=== PATIENT | female | born 1975 | race Caucasian/White ===

== ENCOUNTER 2017-01-19 20:42 | Emergency (ER) | payer OTHER ==
[~2017-01-19] VITALS: Ht 172.7 cm; Wt 97.5 kg
--- NOTE | ~2017-01-19 | CR20 ---
[facility]. [facility] A Service of [facility] & [facility] RADIOLOGY TEXT RESULTS PATIENT: ROSY SHERMAN LOCATION: SED : [birth year] UNIT #: [id number] AGE: [address]: KULDEEP TABOR SEX: F ORDER DR: [id number] [address] [address] [id number] E MR#: [id number] Acc #: [id number] NAME: ROSY SHERMAN : 1975 SEX: F STUDY DATE/TIME: 01/19/2017 22:46 UNIT: SED ROOM: STUDY DESCRIPTION: CR Ankle Min 3 Views Lt Attending Physician: Kuldeep Tabor R.N. Ordering Physician: Timo Luis M.D. Primary Care Physician: Tyree Delgado M.D. MEDICAL IMAGING REPORT This report is preliminary unless electronic signature is present. EXAM Left ankle 3 views HISTORY Slipped down hill last night; foot and ankle pain. FINDINGS 3 views of the left ankle demonstrate a mildly comminuted minimally displaced short oblique fracture of the distal fibula above the level of the ankle mortise. No more than 1-2 mm of displacement. Ankle mortise appears intact. The talus and subtalar joint are unremarkable. IMPRESSION Minimally comminuted and essentially nondisplaced short oblique fracture of the distal fibula above the level of the ankle mortise. Mild associated soft tissue swelling. Dictated by... Aneesh Rivero M.D. THIS IS AN ELECTRONICALLY VERIFIED REPORT Aneesh Rivero M.D. at 01/20/2017 6:55 PM Kurtis TD: 01/20/2017 14:29 JOB #: [id number] MEDICAL IMAGING REPORT Page 1 of 1
--- NOTE | ~2017-01-19 | CR126 ---
[facility]. [facility] A Service of [facility] & [facility] RADIOLOGY TEXT RESULTS PATIENT: ROSY SHERMAN LOCATION: SED : [birth year] UNIT #: [id number] AGE: [address]: KULDEEP TABOR SEX: F ORDER DR: [id number] [address] [id number] E MR#: [id number] Acc #: [id number] NAME: ROSY SHERMAN : 1975 SEX: F STUDY DATE/TIME: 01/19/2017 22:46 UNIT: SED ROOM: STUDY DESCRIPTION: CR Foot Complete Min 3 View Lt Attending Physician: Kuldeep Tabor R.N. Ordering Physician: Timo Luis M.D. Primary Care Physician: Tyree Delgado M.D. MEDICAL IMAGING REPORT This report is preliminary unless electronic signature is present. EXAM Left foot, 3 views. HISTORY Foot and ankle pain last night, slipped down hill. FINDINGS Three views of the left foot demonstrates a partially visualized, mildly comminuted, oblique fracture of the distal fibula. Foot proper appears normal. Normal alignment. The soft tissues are unremarkable. IMPRESSION Partially visualized is a distal fibular fracture, representing a short oblique fracture which is mildly comminuted and minimally-displaced. Please see separate ankle report for details. No foot fracture identified. Dictated by... Aneesh Rivero M.D. THIS IS AN ELECTRONICALLY VERIFIED REPORT Aneesh Rivero M.D. at 01/20/2017 6:55 PM Tila TD: 01/20/2017 05:32 JOB #: [id number] MEDICAL IMAGING REPORT Page 1 of 1
[~2017-01-19 20:42] MED LIST: ADVAIR 250-501 EAC1 IH; ALBUTEROL17 GM INH; AZITHROMYCIN250 MG PO; BACLOFEN10 MG PO; BENZONATATE PO; COMBIVENT INH14.7 G1 INH; COMBIVENT U/D3 M2 INH; CYMBALTA PO; FLEXERIL10 MG PO; FLUOXETINE HCL20 M1 PO; HUMIBID-LA600 MG PO; LEVAQUIN PO; LYRICA100 MG PO; MOTRIN400 MG PO; MUSCLE RELAXER; NEURONTIN PO; OMNICEF300 M1 PO; PERCOCET 10-651 EACH PO; PERCOCET10 PO; PREDNISONE PO; PREDNISONE50 MG PO; PROVENTIL INH0.5 ML HHN; PROZAC10 M1 PO; ROXICODONE30 M1 PO; SYMBICORT INH; TESSALON200 MG PO; TIZANIDINE HCL4 M1 PO; TRAZODONE HCL100 MG PO; VIBRAMYCIN100 M1 PO; VICODIN 5/1 TAB 5/50 PO; VOLTAREN75 MG PO; WELLBUTRIN100 MG PO; ZITHROMAX PO; ZOFRAN PO; ZYRTEC10 M3 PO
[2017-01-19] MEDS ORDERED: TRILEPTAL600 MG PO (21:13)
[2017-01-19] MEDS ORDERED: PROZAC PO (21:13)
[2017-01-19] MEDS ORDERED: BUSPIRONE HCL10 MG PO (21:13)
[2017-01-19] MEDS ORDERED: PREDNISOLONE PO (21:14)
[2017-01-19] MEDS ORDERED: DOXYCYCLINE HY100 M4 PO (21:14)
== END 2017-01-20 00:36 | disposition home or self-care (01) ==
LOC: SED 20:42
DX: S82.455A Nondisplaced comminuted fracture of shaft of left fibula, initial encounter for closed fracture (principal); J44.9 Chronic obstructive pulmonary disease, unspecified; J45.909 Unspecified asthma, uncomplicated; Z88.2 Allergy status to sulfonamides; F17.210 Nicotine dependence, cigarettes, uncomplicated; W18.30XA Fall on same level, unspecified, initial encounter; Y92.830 Public park as the place of occurrence of the external cause
CPT/HCPCS: 29540; 73610; 73630; 99283

== ENCOUNTER → 2017-02-02 | Outpatient (CLI) | payer OTHER ==
[~2017-02-02] MED LIST changes: +BUSPIRONE HCL10 MG PO; +DOXYCYCLINE HY100 M4 PO; +PREDNISOLONE PO; +PROZAC PO; +TRILEPTAL600 MG PO
--- NOTE | ~2017-02-02 | MR84 ---
[facility] A Service of [facility] & [facility] RADIOLOGY TEXT RESULTS PATIENT: ROSY SHERMAN LOCATION: CMRI : 79 UNIT #: [id number] AGE: [address]: Mariel Ramos APRN SEX: F ORDER DR: [id number] [facility] [address] [place], [place] [address] [id number] O MR#: [id number] Acc #: [id number] NAME: ROSY SHERMAN : 1975 SEX: F STUDY DATE/TIME: 02/02/2017 15:18 UNIT: [facility] ROOM: STUDY DESCRIPTION: MR Hip Wo Contrast Rt Attending Physician: Mariel Ramos A.P.R.N. Referring Physician: Mariel Ramos A.P.R.N. Ordering Physician: Mariel Ramos A.P.R.N. Primary Care Physician: Mariel Ramos A.P.R.N. MRI CENTER REPORT This report is preliminary unless electronic signature is present. EXAM MRI of the right hip and pelvis. HISTORY 41-year-old female complains of right hip pain since back surgery with torrie placement 5 years ago. States unable to lie on right side to sleep times 6 months. TECHNIQUE Multiplanar, multiecho imaging was performed of the right hip and pelvis, utilizing a high field magnet and dedicated protocol. FINDINGS Susceptibility artifact is noted within the lower lumbar spine from prior posterior spinal fixation with multilevel pedicle screws. No focal marrow edema is identified to suggest an occult fracture or bone contusion. Detailed imaging of the hips demonstrates a physiologic amount of joint fluid. Edema noted over the right greater trochanter as well as edema along the gluteus medius tendon insertion, compatible with peritendinitis and mild trochanteric bursal inflammation. No high-grade tendinopathy or tear. Internal pelvic structures unremarkable. Uterus surgically absent. IMPRESSION 1. Focal inflammation over the right greater trochanter as well as mild peritendinitis along the right gluteus medius tendon insertion. This may contribute to greater trochanteric pain syndrome and. No high-grade tendinopathy or tear. 2. No significant internal hip pathology or arthropathy. Dictated by... Aneesh Rivero M.D. THIS IS AN ELECTRONICALLY VERIFIED REPORT [facility] A Service of [facility] RADIOLOGY TEXT RESULTS PATIENT: ROSY SHERMAN LOCATION: [facility] : [birth year] UNIT #: [id number] AGE: [address]: Mariel Ramos APRN SEX: F ORDER DR: Aneesh Rivero M.D. at 02/04/2017 4:01 PM GIL/risa TD: 02/03/2017 11:23 JOB #: [id number] MRI CENTER REPORT Page 1 of 1 COPY
== END | disposition home or self-care (01) ==
LOC: CMRI 14:39
DX: M16.51 Unilateral post-traumatic osteoarthritis, right hip (principal); M76.01 Gluteal tendinitis, right hip; M16.11 Unilateral primary osteoarthritis, right hip
CPT/HCPCS: 73721